=== PATIENT | female | born 1975 | race Caucasian/White ===

== ENCOUNTER 2018-03-23 14:42 | Emergency (ER) | payer MEDICARE, MEDICAID ==
[2018-03-23 15:03] VITALS: BP 107/70
--- NOTE | 2018-03-23 15:08 | UC ---
Skin Complaint HPI - HPI Summary HPI Summary: 42 yo female presents with rash on her right cheek and right ear pain. She tells me that the rash is circular and has been present for a week or two, but seems to be getting darker in color - it itches as well. Over the last 2 days has also had some right ear pain and decreased hearing. Denies fever, chills, sinus symptoms, cough. - History of Current Complaint Chief Complaint: UCSkin Time Seen by Provider: 03/23/18 15:08 Stated Complaint: FACIAL SKIN CONCERN Hx Obtained From: Patient Hx Last Menstrual Period: 03/23/18 Current Severity: None Pain Intensity: 0 - Allergy/Home Medications Allergies/Adverse Reactions: Allergies Allergy/AdvReac Type Severity Reaction Status Date / Time No Known Allergies Allergy Verified 03/23/18 15:03 Review of Systems Constitutional: Negative Skin: Rash - Right cheek ENT: Ear Ache Respiratory: Negative Cardiovascular: Negative Neurovascular: Negative Neurological: Negative Psychological: Negative All Other Systems Reviewed And Are Negative: Yes PMH/Surg Hx/FS Hx/Imm Hx - Additional Past Medical History Additional PMH: Chronic pain Endocrine History: Diabetes Psychological History: Anxiety, Depression - Surgical History Surgical History: Yes Surgery Procedure, Year, and Place: tubaligation, tonsillectomy. WISDOM TEETH EXTRACTION. DISK REPLACEMENT NECK SX--2015. BACK SX X3--2016. [facility] - Family History Known Family History: Positive: Hypertension - Social History Lives: With Family Alcohol Use: None Substance Use Type: None Smoking Status (MU): Never Smoked Tobacco Physical Exam - Summary Physical Exam Summary: GENERAL: NAD. WDWN. No pain distress. SKIN: Right cheek: quarter size area of hypopigmented skin with scaley border. No erythema, drainage, or open areas. HEENT: Head: AT/NC Eyes: EOM intact. Conjunctiva clear without inflammation or discharge. Ears: Hearing grossly normal. RIGHT EAR: Mild canal edema and white purulent drainage. TM intact with mild erythema. LEFT EAR: No canal edema or drainage. Nose: Nasal mucosa pink and moist. NTTP maxillary and frontal sinus. Throat: Posterior oropharynx without exudates, erythema, or tonsillar enlargement. Uvula midline. NECK: Supple. Nontender. No lymphadenopathy. CHEST: CTAB. No r/r/w. No accessory muscle use. Breathing comfortably and in no distress. CV: RRR. Without m/r/g. Pulses intact. NEURO: Alert. PSYCH: Age appropriate behavior. Triage Information Reviewed: Yes Vital Signs: Initial Vital Signs Temp 97.2 F 03/23/18 14:58 Pulse 106 03/23/18 14:58 Resp 16 03/23/18 14:58 BP 107/70 03/23/18 14:58 Pulse Ox 97 03/23/18 14:58 Vital Signs Reviewed: Yes Course/Dx - Course Course Of Treatment: Tinea infection right cheek. right otitis externa - Diagnoses Provider Diagnoses: tinea skin infection right cheek. Right otitis externa Discharge - Sign-Out/Discharge Documenting (check all that apply): Patient Departure All imaging exams completed and their final reports reviewed: No Studies - Discharge Plan Condition: Stable Disposition: HOME Prescriptions: Clotrimazole 1% CREAM* [Clotrimazole 1%*] 1 applic TOPICAL BID #1 tube Neomyc/Polym/HC 1% OTIC SUSP* [Cortisporin Otic Susp 1%*] 4 drop RIGHT EAR TID # 1 btl Patient Education Materials: Tinea Corporis (ED), Otitis Externa (ED) Referrals: Shaila Walton MD [Primary Care Provider] - Additional Instructions: If you develop a fever, shortness of breath, chest pain, new or worsening symptoms - please call your PCP or go to the ED. - Billing Disposition and Condition Condition: STABLE Disposition: Home
== END 2018-03-23 15:21 | disposition home or self-care (01) ==
LOC: UCCORT 14:42
DX: B35.9 Dermatophytosis, unspecified (principal); H60.91 Unspecified otitis externa, right ear; E11.9 Type 2 diabetes mellitus without complications
CPT/HCPCS: 99212; G0463